=== PATIENT | female | born 1955 | race Caucasian/White ===

== ENCOUNTER 2023-07-03 14:21 | Emergency (ER) | payer OTHER ==
[2023-07-03 14:44] VITALS: BP 142/75; PULSE 61; RESP 16; TEMP 97.8; BMI 22.2
== END 2023-07-03 15:54 | disposition home or self-care (01) ==
LOC: FER 14:21
PROC: 2W3TX1Z Immobilization of Left Foot using Splint (ICD-10-PCS; principal; 2023-07-03)
DX: S92.352A Displaced fracture of fifth metatarsal bone, left foot, initial encounter for closed fracture (principal); M79.672 Pain in left foot; S90.02XA Contusion of left ankle, initial encounter; R22.42 Localized swelling, mass and lump, left lower limb; X50.1XXA Overexertion from prolonged static or awkward postures, initial encounter; Y92.480 Sidewalk as the place of occurrence of the external cause
CPT/HCPCS: 73610-TC-LT-FY; 73630-TC-LT; 99283-25